=== PATIENT | female | born 1960 | race Two or more races ===

== ENCOUNTER 2025-01-10 09:34 | Outpatient (CLI) | payer OTHER ==
[~2025-01-10 09:34] MED LIST: ANTIVERT12.5 MG PO; CLARINEX-D 11 BOTTLE PO
== END 2025-01-10 09:43 | disposition home or self-care (01) ==
LOC: MAMO-SONO 09:34
PROVIDERS: ATTEND Obstetrics & Gynecology
DX: N60.01 Solitary cyst of right breast (principal); N60.02 Solitary cyst of left breast

== ENCOUNTER 2025-01-27 13:40 | Outpatient (CLI) | payer OTHER ==
[2025-01-27 14:19] LABS: BASO % 0.9 % (0.1-1.2); EOS # 0.09 (0.04-0.54); EOS % 1.1 % (0.7-7.0); LYMPH # 2.77 (1.18-3.74); LYMPH % 34.3 % (19.3-53.1); MEAN PLATELET VOLUME 10.50 fl (9.4-12.4); MONO # 0.42 (0.24-0.82); MONO % 5.2 % (4.7-12.5); NEUT # 4.72 (1.56-6.13); NEUT % 58.4 % (34.0-71.1); RED CELL DISTRIBUTION WIDTH 13.7 % (11.6-14.4)
[2025-01-27 14:41] LABS: INR 1.01
== END 2025-01-27 13:42 | disposition home or self-care (01) ==
LOC: LAB 13:40
DX: D64.9 Anemia, unspecified (principal)

== ENCOUNTER 2025-03-25 07:08 | Outpatient (CLI) | payer OTHER ==
[2025-03-25 07:38] LABS: BASO % 0.8 % (0.1-1.2); EOS # 0.09 (0.04-0.54); EOS % 1.4 % (0.7-7.0); LYMPH # 2.19 (1.18-3.74); LYMPH % 34.3 % (19.3-53.1); MEAN PLATELET VOLUME 10.60 fl (9.4-12.4); MONO # 0.41 (0.24-0.82); MONO % 6.4 % (4.7-12.5); NEUT # 3.63 (1.56-6.13); NEUT % 56.9 % (34.0-71.1); RED CELL DISTRIBUTION WIDTH 14.1 % (11.6-14.4)
[2025-03-25 08:46] LABS: ALT/SGPT 19.0 U/L (12-78); AST/SGOT 15.0 U/L (15-37); BILIRUBIN TOTAL 0.71 mg/dL (0.3-1.2); BUN CREA RATIO 18.0 (7.0-25.0); CREATININE SERUM 1.01 mg/dL (0.55-1.02); GFR 55.36; GLOBULINA 3.5 G/DL (2.4-3.5); GLUCOSE FASTING 83.0 mg/dL (65-100); OSMOLALITY SERUM 286.0 MOSM/KG (275-295)
== END 2025-03-25 07:13 | disposition home or self-care (01) ==
LOC: LAB 07:08
DX: D64.9 Anemia, unspecified (principal); R74.01 Elevation of levels of liver transaminase levels